=== PATIENT | male | born 1980 | race Caucasian/White ===

== ENCOUNTER 2023-07-17 09:23 | Emergency (ER) | payer OTHER, SELFPAY ==
[2023-07-17 10:36] VITALS: BP 137/77; PULSE 73; RESP 20; TEMP 36.4; O2SAT 99
--- NOTE | 2023-07-17 11:04 | ED.URI ---
HPI - URI/Sore Throat General Chief Complaint: Upper Respiratory Infection Stated Complaint: Sore throat Time Seen by Provider: 07/17/23 10:55 Source: patient and RN notes reviewed Mode of arrival: ambulatory Limitations: no limitations History of Present Illness HPI Narrative: Patient presents today with a one-week history of headache and sore throat with some mild congestion and rhinorrhea. Currently rates his pain 2/10 and has been using cough drops and Chloraseptic with some mild relief. Son was diagnosed with strep throat this morning, so he came to [facility] today for testing. Related Data Home Medications Medication Instructions Recorded Confirmed clotrimazole-betamethasone 1 1 applic topical BID 02/20/21 07/17/23 %-0.05 % topical cream semaglutide 0.25 mg or 0.5 mg (2 0.5 mg subcut WEEKLY 07/17/23 07/17/23 mg/3 mL) subcutaneous pen injector (Ozempic) Allergies Allergy/AdvReac Type Severity Reaction Status Date / Time No Known Allergies Allergy Verified 07/17/23 10:33 Review of Systems Review of Systems: CONSTITUTIONAL: Denies body aches, fever, chills, or sweats. EYES: Denies visual changes, redness, or discharge. ENT: Denies otalgia.+ sore throat, congestion, rhinorrhea CARDIOVASCULAR: Denies chest pain, palpitations, or edema. RESPIRATORY: Denies cough or dyspnea. GASTROINTESTINAL: Denies abdominal pain, nausea, vomiting, or diarrhea. GENITOURINARY: Denies dysuria or hematuria. SKIN: Denies rash, itching, or wounds. MUSCULOSKELETAL: Denies back pain, joint pain, or myalgia. NEUROLOGIC: Denies numbness, tingling, or weakness.+ headache PSYCH: Denies depression or anxiety. 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 Grandparent Cancer Social History Social History Smoking status: Former smoker Tobacco type: cigarettes Second hand tobacco smoke exposure: Yes Additional smoking assessment comments: smoked socially in college; hasn't smoked since 2001 Alcohol intake: current Alcohol use details: seldom; socially Substance use: never Substance use type: does not use Lack of Transportation: No Lack of Food: Never True Current Housing: I Have Housing Concerned About Future Housing: No Difficulty Paying Gas/Electric Bills: No Difficulty Paying for Meds: No Currently Unemployed: No Education: Master's Degree or Higher Difficulty w/ Childcare or Family Care: No Comments At time of signature, I have reviewed and agree with nursing past medical, surgical, social and family history unless otherwise noted. Please see nursing chart for further information. There is no relevant family history pertinent to the presenting complaint Exam Narrative: GENERAL: Well-appearing, well-nourished, and in no acute distress. HEAD: Normocephalic, atraumatic. EYES: EOMI. No redness or drainage. Conjunctivae normal. ENT: Mucous membranes pink and moist. Nares clear. No rhinorrhea. TMs normal bilaterally. Thr
== END 2023-07-17 11:09 | disposition home or self-care (01) ==
PROVIDERS: Emergency Provider Nurse Practitioner; PCP Family Medicine
DX: B34.9 Viral infection, unspecified (principal); Z20.822 Contact with and (suspected) exposure to COVID-19; Z87.891 Personal history of nicotine dependence; I10 Essential (primary) hypertension; G47.33 Obstructive sleep apnea (adult) (pediatric); E66.01 Morbid (severe) obesity due to excess calories; Z68.42 Body mass index [BMI] 45.0-49.9, adult; Z85.848 Personal history of malignant neoplasm of other parts of nervous tissue
CPT/HCPCS: 87081; 87426; 87804; 87880; 99213; G0463

== ENCOUNTER 2025-06-01 16:39 | Emergency (ER) | payer OTHER, SELFPAY ==
[2025-06-01 17:02] VITALS: BP 132/76; PULSE 71; RESP 18; TEMP 35.8; O2SAT 99
--- NOTE | 2025-06-01 17:42 | ED.SKABFB ---
HPI - Skin/Abscess/Foreign Bdy General Chief complaint: Skin/Abscess/Foreign Body Stated complaint: Boil on back of leg Time Seen by Provider: 06/01/25 17:42 Source: patient, RN notes reviewed and old records reviewed Mode of arrival: ambulatory Limitations: no limitations History of Present Illness HPI narrative: 44-year-old male presents to the [facility] with a ?boil? on the back of his right thigh. States has been there about 10 days. States he had something similar about a year ago, was prescribed antibiotics. States 10 days ago had some swelling, now red, warm to touch. Area is firm, indurated Related Data Home Medications ?Medication ?Instructions ?Recorded ?Confirmed ?Last Taken ?Type clotrimazole-betamethasone 1 1 applic topical BID 02/20/21 04/23/25 Unknown History %-0.05 % topical cream Allergies Allergy/AdvReac Type Severity Reaction Status Date / Time No Known Allergies Allergy Verified 04/20/25 13:48 Review of Systems Review of Systems: All systems reviewed & are unremarkable except as noted in HPI and below Constitutional: Constitutional: Reports no additional constitutional complaints Musculoskeletal: Musculoskeletal: Reports no additional musculoskeletal complaints Integumentary/Breasts: Skin/Breast: Reports as per HPI and Reports skin swelling PMFSH Past Medical History Medical History Ependymoma Elevated fasting glucose Encounter to establish care Chronic midline posterior neck pain Obstructive sleep apnea on CPAP Right upper extremity numbness Morbid obesity with BMI of 45.0-49.9, adult Primary hypertension Hypertension Sleep apnea History of cancer of spinal cord Surgical History Surgical History History of cervical spinal surgery ~2019 Hx of spinal fusion Hx of tonsillectomy Family History Family History Sibling Hypertension Arthritis Father Family history of hypothyroidism Family history of throat cancer Patient's father is Mother Family history of hypothyroidism Grandparent Heart disease Grandparent No problems noted. Grandparent Cancer Social History Social History Smoking status: Former smoker (quit 20 years ago) Tobacco type: cigarettes Second hand tobacco smoke exposure: Yes Additional smoking assessment comments: smoked socially in college; hasn't smoked since 2001 Alcohol intake: current Alcohol use details: seldom; socially Substance use: never Substance use type: does not use Lack of Transportation: No Lack of Food: Never True Current Housing: I Have Housing Concerned About Future Housing: No Difficulty Paying Gas/Electric Bills: No Difficulty Paying for Meds: No Currently Unemployed: No Education: Master's Degree or Higher Difficulty w/ Childcare or Family Care: No Comments At the time of my signature, I reviewed and agree with the nursing past medical, surgical, social, and family history. There is no relevant family history pertinent to the patient complaint. Exam Const: General: cooperative, healthy appearing, comfortable, no acute distress, well developed, alert and well nourished Nutritional Appearance: well nourished and obese Orientation/consciousness: patient oriented x3 Limitations: no limitations HENMT: Head: normal to inspection Eyes: General: appearance normal, both eyes and all related structures Alignment and Position: alignment normal Neck: Neck: normal visual inspection, full ROM, no lymphadenopathy and no meningeal signs Chest: Chest palpation & inspection: normal inspection of the chest Resp: Effort & Inspection: normal respiratory effort and able to speak in complete sentences Cardio: Rate: regular rate Skin: General skin exam: normal color and no rashes or lesions noted Full body images:  1. 4 x 3 and 0.5 cm indurated red, warm, raised area Neuro: General: patient oriented x3, gait normal, moves all extremities and no meningeal signs Cognition (Neuro): normal cognition Speech: normal speech Gait exam (Neuro): Normal gait present Extrem: General: normal to inspection, full ROM, capillary refill normal and normal gait Psych: Appearance: grossly normal and well kempt Mental Status: mental status grossly normal Speech and movement: Normal speech and movement present and Clear speech present Affect: normal affect Attitude: cooperative Course Course Level of Care: Express Care Visit Vital Signs Vital signs: Vital Signs Temperature 96.4 F L 06/01/25 17:02 Pulse Rate 71 06/01/25 17:02 Respiratory Rate 18 06/01/25 17:02 Blood Pressure 132/76 06/01/25 17:02 Pulse Oximetry 99 06/01/25 17:02 Temperature 96.4 F L 06/01/25 17:02 Pulse Rate 71 06/01/25 17:02 Respiratory Rate 18 06/01/25 17:02 Blood Pressure 132/76 06/01/25 17:02 Pulse Oximetry 99 06/01/25 17:02 reviewed Procedures Abscess I/D lower extremity: Date of Incision: 06/01/25 Time of Incision: 18:14 Side (if applicable): right Local Anesthetic: lidocaine 1% Amount of anesthesia used (mL): 6 Technique: incised with #11 blade Amount of fluid expressed (mL): 1 Irrigation: No Packing used?: none I&D Results: Pus and Blood MDM MDM Narrative Medical decision making narrative: Patient sitting in exam room. Patient is nontoxic, vitals stable. Patient presents with redness, swelling to the posterior thigh. Attempted to open, scant amount of drainage. Did collect culture. Patient appropriate for outpatient treatment with close follow-up Discharge instructions reviewed with patient, as well as provided in writing per nursing staff. The instructions also include specific and strict return/GO TO THE ER as well as f/u information. All questions have been answered, and the patient deny any further questions with discharge and discharge plan. Some parts of this dictation were generated by voice recognition software and may contain typographical and/or grammatical inaccuracies. Differential Diagnosis Differential Diagnosis: Differential diagnostic considerations for skin/abscess/foreign body issues include abscess of skin or subcutaneous tissue, viral exanthem, dermatophytosis, urticaria, herpes zoster, allergic reaction to drug, cellulitis, eczema, insect bites, impetigo, contact dermatitis, vasculitis. Discharge Plan Discharge Clinical Impression: Cellulitis, Abscess Patient Disposition: Home Condition: Stable Instructions: Antibiotic Form, Cellulitis (ED), Abscess (ED) Additional Instructions: DO NOT pick at the area. This will only make the area worse and drive infection deeper. Shower and wash with soapy water. Keep area clean and dry. Apply warm compresses with warm soapy water and Epson salt every 2-3 hours for 15-20 minutes while awake. Take all the antibiotics as prescribed. Make sure to keep a dressing in place especially while it is draining Follow up with PCP in 7-10 days New or worsening symptoms go directly to the emergency room Patient Language: Citizen Of [place] Prescriptions: New cephalexin 500 mg capsule 500 mg PO QID 7 Days Qty: 28 0RF No Action clotrimazole-betamethasone 1-0.05 % cream 1 applic topical BID Mounjaro 2.5 mg/0.5 mL pen injector 2.5 mg subcut WEEKLY Qty: 2 0RF Rx Instructions: for 4 weeks metoprolol succinate 50 mg tablet extended release 24 hr 50 mg PO BID Qty: 90 1RF metformin 500 mg tablet extended release 24 hr 1,000 mg PO BID Qty: 360 3RF losartan 100 mg tablet See Rx Instructions .ROUTE .COMPLEX Qty: 90 2RF Dose Instruction: TAKE 1 TABLET BY MOUTH EVERY DAY Rx Instructions: TAKE 1 TABLET BY MOUTH EVERY DAY atorvastatin 20 mg tablet 20 mg PO DAILY Qty: 90 1RF hydrochlorothiazide 25 mg tablet See Rx Instructions .ROUTE .COMPLEX Qty: 90 1RF Dose Instruction: TAKE 1 TABLET BY MOUTH EVERY DAY Rx Instructions: TAKE 1 TABLET BY MOUTH EVERY DAY Follow-up/Referrals: Rafa,MD Julia [Primary Care Provider, Family Practice] Claude Cox MD [Physician, General Surgery] - 1 Week Clinical Impression: Cellulitis
== END 2025-06-01 18:23 | disposition home or self-care (01) ==
PROVIDERS: Emergency Provider Nurse Practitioner; PCP Family Medicine
DX: L03.115 Cellulitis of right lower limb (principal); L02.415 Cutaneous abscess of right lower limb; I10 Essential (primary) hypertension; Z87.891 Personal history of nicotine dependence
CPT/HCPCS: 10060; 87070; 87205; 99213; G0463